=== PATIENT | female | born 1970 | race Hispanic/Latino ===

== ENCOUNTER 2024-12-11 02:26 | Emergency (ER) | payer OTHER ==
[~2024-12-11] VITALS: Ht 165.1 cm; Wt 91.6 kg
[~2024-12-11 02:26] MED LIST: IBUPROFEN600 MG PO; KETOROLAC TROME10 MG PO
[2024-12-11 02:28] VITALS: TEMP 98.2
[2024-12-11 02:49] LABS: BASOPHILS % 0.6 % (0.0-1.0); EOSINOPHILS % 2.0 % (0.0-6.0); LYMPHOCYTES % 29.1 % (18.0-39.1); MONOCYTES % 6.4 % (4.4-11.3); NEUTROPHILS % 61.5 % (38.7-80.0); RED CELL DISTRIBUTION WIDTH 13.8 % (11.7-14.4)
[2024-12-11] MEDS: ORPHENADRINE CITRATE 30 MG/ML VIAL IM ONE (03:06)
[2024-12-11] MEDS: KETOROLAC TROMETHAMINE 30 MG/ML VIAL IV STA (03:08)
[2024-12-11 03:15] LABS: EST GLOMERULAR FILTRATION RATE 71.0 ML/MIN (>=60)
[2024-12-11 03:17] LABS: LEUKOCYTE ESTERASE ,URINE TRACE (NEGATIVE); PROTEIN,URINE DIPSTICK NEGATIVE (NEGATIVE); URINE UROBILINOGEN 0.2 mg/dL (0.2 - 1)
[2024-12-11 03:51] LABS: EPITHELIAL CELLS,URINE MODERATE /LPF
[2024-12-11 03:55] VITALS: PULSE 62; RESP 16; O2SAT 97
[2024-12-11] MEDS ORDERED: CEFDINIR300 MG PO (03:57)
[2024-12-11] MEDS ORDERED: CYCLOBENZAPRINE5 MG PO (03:57)
[2024-12-11] MEDS ORDERED: NAPROSYN500 MG PO (03:57)
== END 2024-12-11 04:07 | disposition home or self-care (01) ==
LOC: ER 02:39
DX: M54.6 Pain in thoracic spine (principal); M62.830 Muscle spasm of back; N39.0 Urinary tract infection, site not specified; R94.31 Abnormal electrocardiogram [ECG] [EKG]
CPT/HCPCS: 36415; 71045; 80053; 81001; 83690; 84484; 85025; 93005; 99284; J1885; J2360